=== PATIENT | male | born 1980 | race Caucasian/White ===

== ENCOUNTER 2018-01-18 01:53 | Emergency (ER) | payer SELFPAY ==
[~2018-01-18] VITALS: Ht 172.7 cm; Wt 91.0 kg
[2018-01-18 03:07] VITALS: BP 120/80
== END 2018-01-18 03:34 | disposition home or self-care (01) ==
LOC: ER 01:53
DX: S00.03XA Contusion of scalp, initial encounter (principal); F17.200 Nicotine dependence, unspecified, uncomplicated; Y00.XXXA Assault by blunt object, initial encounter; Y93.89 Activity, other specified; Y92.89 Other specified places as the place of occurrence of the external cause; Y99.8 Other external cause status
CPT/HCPCS: 99283; A4217; Z7610

== ENCOUNTER 2019-04-08 15:39 | Inpatient (IN) | payer OTHER, MEDICAID ==
[~2019-04-08] VITALS: Ht 167.6 cm; Wt 97.5 kg
[2019-04-08] MEDS ORDERED: ASPIRIN 81MG TABLET PO ONE (16:30)
[2019-04-08] MEDS ORDERED: NITROGLYCERIN 0.4MG TABLET SL SL PRN (16:30)
[2019-04-08 16:57] LABS: BASOPHILS % 0.5 % (0.0-2.0); EOSINOPHILS % 1.3 % (0.0-5.0); HEMOGLOBIN. 15.3 g/dL (14.0-18.0); LYMPHOCYTES % 16.6 % (20.0-50.0); MEAN CORPUSCULAR HEMOGLOBIN 29.2 pg (28.0-32.0); MEAN CORPUSCULAR VOLUME 87.8 fL (80.0-94.0); MEAN PLATELET VOLUME 10.3 fl (7.4-10.4); MONOCYTES % 4.3 % (2.0-8.0); NEUTROPHILS % 77.3 % (40.0-76.0); PLATELET 198 x1000/uL (130-400); RED BLOOD CELL COUNT 5.24 mill/uL (4.7-6.1); RED CELL DISTRIBUTION WIDTH 14.1 % (11.6-14.6)
[2019-04-08 16:59] LABS: CHLORIDE 107 mEq/L (98-107)
[2019-04-08 17:03] LABS: D-DIMER < 0.19 mg/L FEU (<0.50)
[2019-04-08 17:27] LABS: *AMPHETAMINES SCREEN URINE NEGATIVE (NEGATIVE); *BARBITURATES SCREEN URINE NEGATIVE (NEGATIVE); CANNABINOID URINE SCREEN NEGATIVE (NEGATIVE); METHADONE URINE SCREEN NEGATIVE (NEGATIVE); OPIATES URINE SCREEN NEGATIVE (NEGATIVE); PHENCYCLIDINE URINE SCREEN NEGATIVE (NEGATIVE)
[2019-04-08 17:28] LABS: *BENZODIAZEPINES SCREEN URINE NEGATIVE (NEGATIVE); *COCAINE SCREEN URINE NEGATIVE (NEGATIVE)
[2019-04-08 22:00] VITALS: BP 132/83
[2019-04-08] MEDS ORDERED: AM500 PO (22:12)
[2019-04-08] MEDS ORDERED: IBUP-2030 PO (22:13)
[2019-04-08 22:16] VITALS: BP 132/83
[2019-04-08] MEDS ORDERED: MORPHINE SULFATE 4 MG/ML CPJ (NOT FOR IM USE) IV PRN (23:00)
[2019-04-08] MEDS ORDERED: ACETAMINOPHEN 325MG TABLET PO PRN (23:00)
[2019-04-09] VITALS: BP 109/71
[2019-04-09 01:53] LABS: LDL CHOLESTEROL 103 mg/dL (5-100)
[2019-04-09 01:54] LABS: HDL CHOLESTEROL 41 mg/dL (40-59)
[2019-04-09 04:00] VITALS: BP 114/68
[2019-04-09] MEDS: NITROGLYCERIN OINT 1GM/INCH UDPKT TD SCH ×2 (06:00→14:44)
[2019-04-09 08:00] VITALS: BP 105/61
[2019-04-09] MEDS ORDERED: MECLIZINE 25MG TABLET PO PRN (08:00)
[2019-04-09] MEDS ORDERED: REGADENOSON 0.4 MG/5 ML IV ONE ×2 (08:15→09:47)
[2019-04-09] MEDS ORDERED: METOPROLOL TARTRATE 25MG TABLET PO SCH (09:00)
[2019-04-09] MEDS ORDERED: ASPIRIN 325MG EC TABLET PO SCH (09:00)
[2019-04-09] MEDS ORDERED: ASPIRIN 81MG TABLET PO SCH (09:00)
[2019-04-09 09:25] LABS: LDL CHOLESTEROL 110 mg/dL (5-100)
[2019-04-09 09:27] LABS: HDL CHOLESTEROL 41 mg/dL (40-59)
[2019-04-09 09:28] LABS: T4 FREE 1.05 ng/dL (0.76-1.46)
[2019-04-09 12:00] VITALS: BP 116/73
[2019-04-09 14:39] LABS: CLARITY URINE CLEAR (CLEAR); COLOR URINE YELLOW (YELLOW); KETONES URINE NEGATIVE (NEGATIVE); LEUKOCYTE ESTERASE URINE NEGATIVE (NEGATIVE); NITRITE URINE NEGATIVE (NEGATIVE); OCCULT BLOOD URINE NEGATIVE (NEGATIVE); PROTEIN URINE NEGATIVE (NEGATIVE); SPECIFIC GRAVITY URINE 1.022 (1.005-1.030); UROBILINOGEN URINE 0.2 E.U./dL (0.2-1.0)
[2019-04-09 15:56] LABS: CREATINE KINASE 162 IU/L (39-308)
[2019-04-09 16:00] VITALS: BP 105/66
[2019-04-09 16:00] LABS: CREATINE KINASE MB FRACTION < 1.0 ng/mL (0.5-3.6)
[2019-04-09 17:19] VITALS: BP 105/66
== END 2019-04-09 17:55 | disposition home or self-care (01) | DRG 48 ==
LOC: ER 15:39 → 5WST 17:36 → EDBEDREQ 17:38 → ENRESERV 20:48
PROVIDERS: ADMIT Internal Medicine; ATTEND Internal Medicine
DX: G90.8 Other disorders of autonomic nervous system (principal); E66.9 Obesity, unspecified; M94.0 Chondrocostal junction syndrome [Tietze]; R07.89 Other chest pain; Z71.3 Dietary counseling and surveillance; Z79.2 Long term (current) use of antibiotics; Z87.891 Personal history of nicotine dependence; Z79.899 Other long term (current) drug therapy; Z79.1 Long term (current) use of non-steroidal anti-inflammatories (NSAID); Z68.34 Body mass index [BMI] 34.0-34.9, adult
CPT/HCPCS: 36415; 71045; 78452; 80061; 80305; 82550; 82553; 83036; 83880; 84439; 84443; 84484; 85379; 93005; 93017; 93306; 93970; 99285; A9500; J2785; J8597